=== PATIENT | female | born 1940 | race African-American/Black ===

== ENCOUNTER 2020-05-14 17:12 | Emergency (ER) | payer OTHER ==
[~2020-05-14] VITALS: Ht 165.1 cm; Wt 82.0 kg
[2020-05-14 18:00] VITALS: BP 154/82
[2020-05-14] MEDS ORDERED: IBUPROFEN 600MG TABLET PO ONE (18:00)
[2020-05-14] MEDS ORDERED: MELO-105 MT (19:19)
== END 2020-05-14 20:04 | disposition home or self-care (01) ==
LOC: ER 17:12
DX: M17.11 Unilateral primary osteoarthritis, right knee (principal); E11.9 Type 2 diabetes mellitus without complications; Z86.73 Personal history of transient ischemic attack (TIA), and cerebral infarction without residual deficits
CPT/HCPCS: 73560; 93005; 93970; 99284